=== PATIENT | female | born 1950 | race Caucasian/White ===

== ENCOUNTER → 2016-08-21 | Outpatient (CLI) | payer BC ==
--- NOTE | 2016-08-22 10:10 | WOMENS IMAGING REPORT ---
EXAM DESCRIPTION: BILAT SCREENING MAMMO W/CAD COMPLETED DATE/TIME: 08/21/2016 8:40 am REASON FOR STUDY: Z12.31 ROUTINE SCREENING MAMMO Z12.31 ENCNTR SCREEN MAMMOGRAM FOR MALIGNANT NEOPL ASM OF AMPARO COMPARISON: 08/17/2015 TECHNIQUE: Standard craniocaudal and mediolateral oblique views of each breast recorded using Botanical Tansa l acquisition. LIMITATIONS: None. FINDINGS: No masses, calcifications or architectural distortion. No areas of suspicion. Read with the assistance of CAD. .[facility] - R2 Cenova Version 1.3 .[facility] Imaging - R2 Cenova Version 1.3 .[facility] Imaging - R2 Cenova Version 2.4 .[facility] - R2 Cenova Version 2.4 .[facility] - R2 Channeler Runner Version 9.2 BREAST DENSITY: b. There are scattered areas of fibroglandular density. BIRAD: 1 NEGATIVE RECOMMENDATION: ROUTINE SCREENING COMMENT: PATIENT NOTIFIED BY LETTER. The [employer] recommends an annual screening mammogram for women aged 40 years or over. Each patient will receive a reminder prior to the anniversary date of her mammogram. The [employer] (ACR) has developed recommendations for screening MRI of the breast s in certain patient populations, to be used in conjunction with mammography. Breast MRI surveillanc e may be appropriate for women with more than 20% lifetime risk of developing breast cancer as deter mined by genetic testing, significant family history of the disease, or history of mantle radiation f or Hodgkins Disease. ACR Practice Guidelines 2008. TECHNICAL DOCUMENTATION: FINDING NUMBER: (1) ASSESSMENT: (1) JOB ID: [id number] [email or web address] All Rights Reserved
== END ==
LOC: WI 08:11
PROVIDERS: ATTEND Physician Assistant
DX: Z12.31 Encounter for screening mammogram for malignant neoplasm of breast (principal)
CPT/HCPCS: 77067; G0202

== ENCOUNTER → 2017-12-11 | Outpatient (CLI) | payer MEDICARE, BC ==
--- NOTE | 2017-12-11 16:47 | WOMENS IMAGING REPORT ---
EXAM DESCRIPTION: 3D SCREENING MAMMO BILAT COMPLETED DATE/TIME: 12/11/2017 2:43 pm REASON FOR STUDY: ROUTINE SCREENING Z12.31 Z12.31 ENCNTR SCREEN MAMMOGRAM FOR MALIGNANT NEOPLASM OF AMPARO COMPARISON: 2014, 2016 TECHNIQUE: Standard craniocaudal and mediolateral oblique views of each breast recorded using digita l acquisition and breast tomosynthesis. LIMITATIONS: None. FINDINGS: Findings present which are benign by mammographic criteria. No suspicious masses, calcifi cations or architectural distortion. Pertinent benign findings: Left breast cyst, left breast intramammary lymph nodes, bilateral benign b reast parenchymal calcifications. Read with the assistance of CAD. .[facility] - R2 Cenova Version 1.3 .[facility] Imaging - R2 Cenova Version 1.3 .[facility] Imaging - R2 Cenova Version 2.4 .[facility] [place]2 Cenova Version 2.4 .[facility] - R2 Mud Jack Operator Version 9.2 Benign mammographic findings may include one or more of the following: Smooth masses, popcorn/rim/co arse calcifications, asymmetries, post-procedure changes, and lesions with long-standing stability. IMPRESSION: BENIGN MAMMOGRAPHIC FINDINGS. BIRADS 2 BREAST DENSITY: b. There are scattered areas of fibroglandular density. BIRAD: 2 BENIGN FINDING(S) RECOMMENDATION: RECOMMENDATION: ROUTINE SCREENING Please continue yearly bilateral screening tomosynthesis in November 2018 COMMENT: The patient has been notified of the results by letter per SA requirements. Additional no tification policies are in place for contacting patient with suspicious or incomplete findings. Quality ID #[id number]: The [employer] recommends an annual screening mammogram for women aged 40 years or over. This facility utilizes a reminder system to ensure that all patients receive reminder letters, and/or direct phone calls for appointments. This includes reminders for routine scr eening mammograms, diagnostic mammograms, or other Breast Imaging Interventions when appropriate. Th is patient will be placed in the appropriate reminder system. The [employer] (ACR) has developed recommendations for screening MRI of the breast s in certain patient populations, to be used in conjunction with mammography. Breast MRI surveillanc e may be appropriate for women with more than 20% lifetime risk of developing breast cancer as deter mined by genetic testing, significant family history of the disease, or history of mantle radiation f or Hodgkins Disease. ACR Practice Guidelines 2008. DBT Technology DBT is a type of tomographic mammography. With conventional mammography, overlapping breast tissue ma y make lesions difficult to detect, even with good compression. DBT uses an x-ray tube that rotates a round the breast, taking images at different angles. These images are then combined to create thin sl ices of the breast that the radiologist can view as a 3D reconstruction. The Hologic unit can perform full-field digital mammograms (2D imaging); or DBT (3D imaging); or both, in a combination mode that quickly performs both the mammogram and the tomosynthesis scan while the breast is still compressed. PQRS 6045F: Fluoroscopic imaging is not utilized for breast tomosynthesis. TECHNICAL DOCUMENTATION: FINDING NUMBER: (1) ASSESSMENT: (1) JOB ID: [id number] [employer]- All Rights Reserved Reading location - IP/workstation name: [email or web address]
== END ==
LOC: WI 14:34
PROVIDERS: ATTEND Physician Assistant
DX: Z12.31 Encounter for screening mammogram for malignant neoplasm of breast (principal)
CPT/HCPCS: 77063; 77067

== ENCOUNTER → 2018-07-24 | Outpatient (CLI) | payer MEDICARE, BC ==
--- NOTE | 2018-07-24 11:20 | WOMENS IMAGING REPORT ---
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 LIMITATIONS: None. FINDINGS: LUMBAR SPINE: The bone mineral density (BMD) measured from L1-L4 in the AP projection correlates with a T-score of 0.3, which is normal as defined by the World Health Organization. HIP: The bone mineral density (BMD) measured in the left hip correlates with a T-score of -1.1, previously -0.6, which is osteopenia as defined by the World Health Organization. IMPRESSION: 1. LUMBAR SPINE: NORMAL. 2. HIP: OSTEOPENIA. COMMENT: The World Health Organization defines low BMD as follows: T-score: Normal: Greater than -1.0 Osteopenia: Between -1.0 and -2.5 Osteoporosis: Less than -2.5 without fractures Established osteoporosis: Less than -2.5 with fractures In general, you may wish to consider: Diagnosis Treatment Follow-up DEXA Normal BMD Prevention 2-3 years Osteopenia Prevention/Therapy 1-2 years Osteoporosis Therapy Yearly TECHNICAL DOCUMENTATION: JOB ID: [id number]- All Rights Reserved Reading location - IP/workstation name: [facility]-RR
== END ==
LOC: WI 10:23
PROVIDERS: ATTEND Physician Assistant
DX: M81.0 Age-related osteoporosis without current pathological fracture (principal)
CPT/HCPCS: 77080

== ENCOUNTER 2018-09-27 18:01 | Emergency (ER) | payer MEDICARE, BC ==
[2018-09-27] MEDS ORDERED: ONDANSETRON HCL INJ/PF 4 MG/2 ML SDV ONE (18:12)
[2018-09-27 18:33] LABS: ABSOLUTE BASOPHILS # (AUTO) 0.1 10^3/uL (0.0-0.2); ABSOLUTE EOSINOPHILS # (AUTO) 0.1 10^3/uL (0.0-0.6); ABSOLUTE LYMPHOCYTES (AUTO) 1.6 10^3/uL (0.5-4.7); ABSOLUTE MONOCYTES (AUTO) 0.4 10^3/uL (0.1-1.4); ABSOLUTE NEUT (AUTO) 3.9 10^3/uL (1.7-8.2); EOSINOPHILS % (AUTO) 2.4 % (0-6); HEMATOCRIT 41.3 % (36.0-47.0); HEMOGLOBIN 13.9 g/dL (12.0-15.5); LYMPHOCYTES % (AUTO) 26.3 % (13-45); MEAN CORPUSCULAR HEMOGLOBIN 29.8 pg (27.0-33.4); MEAN CORPUSCULAR HGB CONC 33.8 g/dL (32.0-36.0); MEAN CORPUSCULAR VOLUME 88 fl (80-97); MONOCYTES % (AUTO) 7.2 % (3-13); PLATELET COUNT 251 10^3/uL (150-450); RED BLOOD COUNT 4.67 10^6/uL (3.72-5.28); RED CELL DISTRIBUTION WIDTH 13.6 % (11.5-14.0); SEGMENTED NEUTROPHILS % (AUTO) 63.1 % (42-78); TOTAL CELLS COUNTED % (AUTO) 100 %; WHITE BLOOD COUNT 6.2 10^3/uL (4.0-10.5)
[2018-09-27 18:52] LABS: ALANINE AMINOTRANSFERASE 15 U/L (9-52); ALBUMIN 4.7 g/dL (3.5-5.0); ALKALINE PHOSPHATASE 69 U/L (38-126); ANION GAP 12 (5-19); ASPARTATE AMINO TRANSFERASE 30 U/L (14-36); BILIRUBIN,DIRECT 0.4 mg/dL (0.0-0.4); BILIRUBIN,TOTAL 0.7 mg/dL (0.2-1.3); BLOOD UREA NITROGEN 17 mg/dL (7-20); CALCIUM 9.1 mg/dL (8.4-10.2); CARBON DIOXIDE 27 mmol/L (22-30); CHLORIDE 104 mmol/L (98-107); GLUCOSE 147 mg/dL (75-110); LIPASE 122.5 U/L (23-300); POTASSIUM 4.4 mmol/L (3.6-5.0); SODIUM 142.6 mmol/L (137-145); TOTAL PROTEIN 7.8 g/dL (6.3-8.2)
--- NOTE | 2018-09-27 19:04 | RADIOLOGY REPORT (SQ) ---
EXAM DESCRIPTION: CHEST SINGLE VIEW COMPLETED DATE/TIME: 09/27/2018 6:36 pm REASON FOR STUDY: cp COMPARISON: None. EXAM PARAMETERS: NUMBER OF VIEWS: One view. TECHNIQUE: Single frontal radiographic view of the chest acquired. RADIATION DOSE: NA LIMITATIONS: None. FINDINGS: LUNGS AND PLEURA: No opacities, masses or pneumothorax. No pleural effusion. MEDIASTINUM AND HILAR STRUCTURES: No masses. Contour normal. HEART AND VASCULAR STRUCTURES: Heart normal in size. Normal vasculature. BONES: No acute findings. HARDWARE: None in the chest. OTHER: No other significant finding. IMPRESSION: NO ACUTE RADIOGRAPHIC FINDING IN THE CHEST. TECHNICAL DOCUMENTATION: JOB ID: [id number] [place]-72 2010 [email or web address]- All Rights Reserved Reading location - IP/workstation name: [email or web address]
[2018-09-27] MEDS ORDERED: RINGERS SOLUTION,LACTATED 1,000 ML IV ONE (19:08)
[2018-09-27] MEDS ORDERED: KETOROLAC TROMETHAMINE INJ/PF 30 MG/1 ML SDV IV ONE (19:08)
[2018-09-27] MEDS ORDERED: METOCLOPRAMIDE HCL INJ/PF 10 MG/2 ML SDV IV ONE (19:08)
--- NOTE | 2018-09-27 19:13 | ER Document Report ---
ED General - General Chief Complaint: Chest Pain Stated Complaint: RUQ PAIN Time Seen by Provider: 09/27/18 18:56 Primary Care Provider: ROBERTO CERNA MD [Primary Care Provider] - Follow up as needed Notes: Patient is a 68-year-old female with a past medical history of hypothyroidism who presents with right upper quadrant discomfort. Patient states that this started earlier today as a dull, aching, constant pain to the right upper quadrant and right lower rib spaces. States that it became progressively worse and eventually became quite severe. She contacted her daughter who is a linting machine operator. In route to the hospital the patient appears extremely uncomfortable so 911 was routed and the patient was ultimately brought in by EMS. The patient denies any distinct chest pain. No radiation of the pain to the back, arms or jaw. Denies any associated shortness of breath. Did have associated nausea and vomiting. No hematemesis. Has not had fever or constitutional symptoms. No history of similar symptoms in the past. She has no prior abdominal surgical history. At the time of my evaluation the patient states that her pain has almost completely resolved and is now a minor pain to her right upper quadrant location. TRAVEL OUTSIDE OF THE [place] IN LAST 30 DAYS: No - Related Data Allergies/Adverse Reactions: codeine [Codeine] Allergy (Verified 05/26/13 16:23) enoxaparin sodium [From Lovenox] Allergy (Verified 05/26/13 16:23) Penicillins Allergy (Verified 05/26/13 16:23) Sulfa (Sulfonamide Antibiotics) Allergy (Verified 05/26/13 16:23) Past Medical History - General Information source: Patient - Social History Smoking Status: Former Smoker Chew tobacco use (# tins/day): No Frequency of alcohol use: None Drug Abuse: None Lives with: Alone Family History: Reviewed & Not Pertinent Patient has suicidal ideation: No Patient has homicidal ideation: No - Past Medical History Cardiac Medical History: Reports: Hx Hypercholesterolemia Endocrine Medical History: Reports: Hx Hypothyroidism Renal/ Medical History: Denies: Hx Peritoneal Dialysis Past Surgical History: Reports: Hx Orthopedic Surgery - bilateral knees, Hx Tonsillectomy - Immunizations Hx Diphtheria, Pertussis, Tetanus Vaccination: Yes Review of Systems - Review of Systems Notes: Constitutional: Negative for fever. HENT: Negative for sore throat. Eyes: Negative for visual changes. Cardiovascular: Negative for chest pain. Respiratory: Negative for shortness of breath. Gastrointestinal: Positive for upper abdominal pain, nausea and vomiting Genitourinary: Negative for dysuria. Musculoskeletal: Negative for back pain. Skin: Negative for rash. Neurological: Negative for headaches, weakness or numbness. 10 point ROS negative except as marked above and in HPI. Physical Exam - Vital signs Vitals: Resp Pulse Ox 18 97 09/27/18 18:14 09/27/18 18:14 Interpretation: Hypertensive Notes: PHYSICAL EXAMINATION: GENERAL: Well-appearing, well-nourished and in no acute distress. HEAD: Atraumatic, normocephalic. EYES: Pupils equal round and reactive to light, extraocular movements intact, sclera anicteric, conjunctiva are normal. ENT: nares patent, oropharynx clear without exudates. Moist mucous membranes. NECK: Normal range of motion, supple without lymphadenopathy LUNGS: Breath sounds clear to auscultation bilaterally and equal. No wheezes rales or rhonchi. HEART: Regular rate and rhythm without murmurs ABDOMEN: Soft, nontender, normoactive bowel sounds. No guarding, no rebound. No masses appreciated. EXTREMITIES: Normal range of motion, no pitting or edema. No cyanosis. NEUROLOGICAL: No focal neurological deficits. Moves all extremities spontaneously and on command. PSYCH: Normal mood, normal affect. SKIN: Warm, Dry, normal turgor, no rashes or lesions noted. Course - Re-evaluation Re-evalutation: 09/27/18 19:11 Patient presents with right upper quadrant and right lower chest discomfort with associated nausea and vomiting. At the time of my assessment the patient appears much improved relative to the characterization provided by both the patient and her daughter from previous. She denies any significant ongoing tano n. Exam is completely benign without any findings. She has no focal abdominal tenderness. No neurologic deficits. No murmurs. Breath sounds clear bilaterally. Vitals show only mild hypertension, 150 systolic. Laboratories including an initial troponin are normal. EKG initially showed tachycardia which has resolved with the current heart rate of 62. Right upper quadrant ultrasound is pending. Differential diagnosis includes biliary pathology, highly unlikely to be pancreatitis given normal lipase level, less likely atypical presentation of IL. EKG without ischemic changes. Will obtain a delta troponin III hours after initial. An acute pulmonary embolus seems also highly unlikely given the absence of any shortness of breath, any pleuritic component to the pain, association of nausea and vomiting. Patient has no unilateral leg swelling, initial tachycardia did resolve after patient's pain resolved without any intervention. Do not believe CT of the chest would be appropriate at this point. 09/27/18 22:57 2 troponins have remained negative. Patient remains without any abdominal pain. No further vomiting. Has tolerated oral intake without difficulty. Right upper quadrant ultrasound without any evidence of acute cholecystitis or signs of symptomatic cholelithiasis. At this point the exact etiology of the patient's presentation is uncertain and I have reviewed the diagnostic uncertainty with the patient and her daughter at the bedside. The diagnosis of a gastritis or duodenitis is possible and I will empirically treat the patient for this presumptive diagnosis although I have again emphasized with the patient and her daughter at the bedside that this is not a definitive diagnosis. At this time will discharge with return precautions and follow-up recommendations. Verbal discharge instructions given a the bedside and opportunity for questions given. Medication warnings reviewed. Patient is in agreement with this plan and has verbalized understanding of return precautions and the need for primary care follow-up in the next 24-72 hours. - Vital Signs Vital signs: Temp Pulse Resp BP Pulse Ox 97.5 F 72 18 107/55 L 96 09/27/18 18:24 09/27/18 18:24 09/27/18 22:01 09/27/18 22:01 09/27/18 22:01 - Laboratory Result Diagrams: 09/27/18 18:07 09/27/18 18:07 Laboratory results interpreted by me: 09/27/18 18:07 Est GFR (Non-Af Amer) 57 L Glucose 147 H - Diagnostic Test Radiology reviewed: Image reviewed, Reports reviewed Radiology results interpreted by me: 09/27/18 19:13 Chest x-ray: No acute infiltrate or pneumothorax - EKG Interpretation by Me Additional EKG results interpreted by me: 09/27/18 19:13 Sinus tachycardia, rate 112. No ST elevations or depressions. QTC is 426. Discharge - Discharge Clinical Impression: Chest discomfort, Right upper quadrant abdominal pain Nausea and vomiting Qualifiers: Vomiting type: unspecified Vomiting Intractability: non-intractable Qualified Code(s): R11.2 - Nausea with vomiting, unspecified Condition: Good Disposition: HOME, SELF-CARE Additional Instructions: You were seen today for chest pain. The exact cause of your pain is unclear. However, based on your cardiac enzyme testing, chest x-ray, and EKG it does not appear that it is from an immediately life-threatening cause at this time. Your gallbladder ultrasound is also normal. All of your labs are likewise normal. Although your testing here is normal is critical that you follow-up with your primary care physician for continued evaluation of this chest pain and/or abdominal pain. Your symptoms could be related to stomach or upper intestinal irritation. Please begin taking famotidine 40 mg in the morning and 40 mg at night. Take Carafate prior to meals. Please return to emergency department immediately if you have worsening of your pain, shortness of breath, vomiting, become unable to exert yourself due to pain or difficulty breathing, you pass out, or have any pain that radiates into your arms, jaw, or back. Please also return if you have any additional symptoms that are concerning to you. As we have discussed, the most important thing is lifestyle changes. You need to avoid smoking, sodas, tea, coffee, alcohol, spicy foods, and acidic foods such as citrus fruits, tomato based products, berries, and most fruit juices. Prescriptions: Famotidine 40 mg PO BID #60 tablet Sucralfate [Carafate 1 gm Tablet] 1 gm PO ACHS #120 tablet Referrals: ROBERTO CERNA MD [Primary Care Provider] - Follow up tomorrow
--- NOTE | 2018-09-27 19:22 | RADIOLOGY REPORT (SQ) ---
EXAM DESCRIPTION: U/S ABDOMEN LIMITED W/O DOP COMPLETED DATE/TIME: 09/27/2018 7:01 pm REASON FOR STUDY: ruq pain COMPARISON: None. TECHNIQUE: Dynamic and static grayscale images acquired of the abdomen and recorded on PACS. Additio nal selected color Doppler and spectral images recorded. LIMITATIONS: None. FINDINGS: PANCREAS: No masses. Visualized pancreatic duct normal caliber. LIVER: No masses. Echotexture normal. LIVER VASCULATURE: Normal directional flow of the main portal vein and hepatic veins. GALLBLADDER: No stones. Normal wall thickness. No pericholecystic fluid. ULTRASOUND-DETECTED WHITT'S SIGN: Negative. INTRAHEPATIC DUCTS AND COMMON DUCT: CBD and intrahepatic ducts normal caliber. No filling defects. INFERIOR VENA CAVA: Normal flow. AORTA: No aneurysm identified. RIGHT KIDNEY: Normal size. Normal echogenicity. No solid or suspicious masses. No hydronephros is. No calcifications. PERITONEAL AND RIGHT PLEURAL SPACE: No ascites or effusions. OTHER: No other significant findings. IMPRESSION: NO ACUTE FINDINGS. TECHNICAL DOCUMENTATION: JOB ID: [id number] [place]-72 2010 [employer]- All Rights Reserved Reading location - IP/workstation name: [email or web address]
[2018-09-27 22:57] VITALS: BP 107/55
[2018-09-27] MEDS ORDERED: SUCRALFATE 1 GM TABLET PO ONE (22:57)
[2018-09-27] MEDS ORDERED: MAG HYDROX/AL HYDROX/SIMETH SUSP 30 ML UDCUP PO ONE (22:57)
[2018-09-27] MEDS ORDERED: METOCLOPRAMIDE HCL ORAL SOLN 10 MG/10 ML UDCUP PO ONE (22:57)
[2018-09-27] MEDS ORDERED: LIDOCAINE 2% VISCOUS SOLN 20 ML UDCUP PO ONE (22:57)
[2018-09-27] MEDS ORDERED: FAMOTIDINE 20 MG TABLET PO ONE (22:57)
--- NOTE | 2018-09-28 23:50 | EKG REPORT ---
SEVERITY:- ABNORMAL ECG - SINUS TACHYCARDIA LEFT ANTERIOR FASCICULAR BLOCK CONSIDER LEFT VENTRICULAR HYPERTROPHY : Confirmed by: Monica Birmingham 28-Sep-2018 23:50:05
== END 2018-09-27 23:17 | disposition home or self-care (01) ==
LOC: ER 18:01
DX: R07.9 Chest pain, unspecified (principal); R10.11 Right upper quadrant pain; R07.81 Pleurodynia; Z87.891 Personal history of nicotine dependence
CPT/HCPCS: 93005; 99285; 96361; 96374; 96375; 36415; 83690; 85025; 80053; 84484; 71045; 76705; 93010; A9270 ×3; J3490; J1885; J2765; J2405; J7120

== ENCOUNTER 2019-05-18 20:09 | Emergency (ER) | payer MEDICARE, BC ==
--- NOTE | 2019-05-18 21:26 | ER Document Report ---
ED Medical Screen (RME) - General Chief Complaint: Headache Stated Complaint: REPORTS HIGH BLOOD PRESSURE Time Seen by Provider: 05/18/19 21:07 Primary Care Provider: ROBERTO CERNA MD [Primary Care Provider] - Follow up as needed TRAVEL OUTSIDE OF THE [place] IN LAST 30 DAYS: No - HPI Notes: 05/18/19 21:22 Patient is a 68-year-old female with a history of hypothyroidism that presents complaining of elevated blood pressure, malaise and brief left arm pain that occurred earlier today. Patient stated that she measured her blood pressure at home with a "wrist style" blood pressure cuff. Patient states her systolic blood pressure was in the 250s. Patient denies chest pain, shortness of breath, visual changes, headache. Patient denies prior history of kidney disease. Patient states she quit "vaping" in August 2018. Patient admits to increased urinary frequency today. I have treated and performed a rapid initial assessment of this patient. [place] to the ED assessment and evaluation of the patient, analysis of the test results, and completion of medical decision making process will be conducted by additional ED providers. - Related Data Allergies/Adverse Reactions: codeine [Codeine] Allergy (Verified 05/26/13 16:23) enoxaparin sodium [From Lovenox] Allergy (Verified 05/26/13 16:23) Penicillins Allergy (Verified 05/26/13 16:23) Sulfa (Sulfonamide Antibiotics) Allergy (Verified 05/26/13 16:23) Past Medical History - Social History Chew tobacco use (# tins/day): No Frequency of alcohol use: None Drug Abuse: None - Past Medical History Cardiac Medical History: Reports: Hx Hypercholesterolemia Endocrine Medical History: Reports: Hx Hypothyroidism Renal/ Medical History: Denies: Hx Peritoneal Dialysis Past Surgical History: Reports: Hx Orthopedic Surgery - bilateral knees, Hx Tonsillectomy - Immunizations Hx Diphtheria, Pertussis, Tetanus Vaccination: Yes Physical Exam - Vital signs Vitals: Temp Pulse Resp BP Pulse Ox 97.8 F 84 18 166/90 H 93 05/18/19 20:23 05/18/19 20:23 05/18/19 20:23 05/18/19 20:23 05/18/19 20:23 - General General appearance: Appears well, Alert - Respiratory Respiratory status: No respiratory distress Breath sounds: Normal - Cardiovascular Rhythm: Regular Heart sounds: Normal auscultation - Abdominal Distension: No distension Tenderness: Nontender Course - Vital Signs Vital signs: Temp Pulse Resp BP Pulse Ox 97.8 F 84 18 166/90 H 93 05/18/19 20:23 05/18/19 20:23 05/18/19 20:23 05/18/19 20:23 05/18/19 20:23 Doctor's Discharge - Discharge Referrals: ROBERTO CERNA MD [Primary Care Provider] - Follow up as needed
--- NOTE | 2019-05-18 22:29 | RADIOLOGY REPORT (SQ) ---
EXAM DESCRIPTION: CLINICAL HISTORY: 68 years Female, high blood pressure, left arm pain COMPARISON: None. FINDINGS: Mild scoliosis. Cardiomediastinal silhouette is not enlarged. Mild elevation of the right hemidiaphragm. No acute lung or pleural abnormalities. IMPRESSION: No acute findings.
[2019-05-18 22:35] LABS: APPEARANCE,URINE SLIGHTLY-CLOUDY; BILIRUBIN,URINE NEGATIVE (NEGATIVE); COLOR,URINE YELLOW; GLUCOSE, URINE NEGATIVE (NEGATIVE); KETONES,URINE NEGATIVE (NEGATIVE); LEUKOCYTE ESTERASE,URINE TRACE (NEGATIVE); NITRITE,URINE NEGATIVE (NEGATIVE); PROTEIN,URINE NEGATIVE (NEGATIVE); URINE SPECIFIC GRAVITY 1.018; UROBILINOGEN,URINE NEGATIVE mg/dL (<2.0)
[2019-05-18 22:38] LABS: ABSOLUTE BASOPHILS # (AUTO) 0.1 10^3/uL (0.0-0.2); ABSOLUTE EOSINOPHILS # (AUTO) 0.1 10^3/uL (0.0-0.6); ABSOLUTE LYMPHOCYTES (AUTO) 1.5 10^3/uL (0.5-4.7); ABSOLUTE MONOCYTES (AUTO) 0.4 10^3/uL (0.1-1.4); ABSOLUTE NEUT (AUTO) 2.2 10^3/uL (1.7-8.2); BASOPHILS % (AUTO) 1.4 % (0-2); EOSINOPHILS % (AUTO) 3.3 % (0-6); HEMATOCRIT 43.8 % (36.0-47.0); HEMOGLOBIN 14.7 g/dL (12.0-15.5); LYMPHOCYTES % (AUTO) 35.5 % (13-45); MEAN CORPUSCULAR HEMOGLOBIN 29.5 pg (27.0-33.4); MEAN CORPUSCULAR HGB CONC 33.6 g/dL (32.0-36.0); MEAN CORPUSCULAR VOLUME 88 fl (80-97); MONOCYTES % (AUTO) 8.1 % (3-13); PLATELET COUNT 247 10^3/uL (150-450); RED BLOOD COUNT 4.99 10^6/uL (3.72-5.28); SEGMENTED NEUTROPHILS % (AUTO) 51.7 % (42-78); TOTAL CELLS COUNTED % (AUTO) 100 %; WHITE BLOOD COUNT 4.3 10^3/uL (4.0-10.5)
--- NOTE | 2019-05-18 22:44 | RADIOLOGY REPORT (SQ) ---
EXAM DESCRIPTION: CT HEAD WITHOUT IV CONTRAST COMPLETED DATE/TME: 05/18/2019 21:18 CLINICAL HISTORY: 68 years, Female, high blood pressure, malaise, left upper arm pain COMPARISON: None. TECHNIQUE: 183 Images stored on PACS. All CT scanners at this facility use dose modulation, iterative reconstruction, and/or weight based dosing when appropriate to reduce radiation dose to as low as reasonably achievable (ALARA). [facility]: Dose Right [facility]: CareDose [facility]: Dose Right [facility]: Teradose 4D [facility]: Smart Technologies LIMITATIONS: None. FINDINGS: The globes are intact. The paranasal sinuses and mastoid air cells are unremarkable. No displaced or depressed skull fracture. No intra or extra-axial hemorrhage. CT is limited for evaluation of acute infarct. No CT evidence for large or territorial acute infarct. No mass. No midline shift IMPRESSION: No acute intracranial abnormality TECHNICAL DOCUMENTATION: Quality ID # [id number]: Final reports with documentation of one or more dose reduction techniques (e.g., Automated exposure control, adjustment of the mA and/or kV according to patient size, use of iterative reconstruction technique) copyright 2011 [employer]- All Rights Reserved
[2019-05-18 22:49] LABS: INTERNATIONAL RATION (INR) 0.92; PROTHROMBIN TIME 12.3 SEC (11.4-15.4)
[2019-05-18 22:50] LABS: PARTIAL THROMBOPLASTIN TIME 30.6 SEC (23.5-35.8)
[2019-05-18 22:56] LABS: ALBUMIN 4.9 g/dL (3.5-5.0); ALKALINE PHOSPHATASE 80 U/L (38-126); ANION GAP 10 (5-19); ASPARTATE AMINO TRANSFERASE 29 U/L (14-36); BILIRUBIN,DIRECT 0.1 mg/dL (0.0-0.4); BILIRUBIN,TOTAL 0.6 mg/dL (0.2-1.3); BLOOD UREA NITROGEN 17 mg/dL (7-20); CALCIUM 9.9 mg/dL (8.4-10.2); CARBON DIOXIDE 26 mmol/L (22-30); CHLORIDE 104 mmol/L (98-107); GLUCOSE 105 mg/dL (75-110); POTASSIUM 4.2 mmol/L (3.6-5.0); TOTAL PROTEIN 8.1 g/dL (6.3-8.2)
--- NOTE | 2019-05-18 23:59 | ER Document Report ---
ED Headache - General Chief Complaint: Headache Stated Complaint: REPORTS HIGH BLOOD PRESSURE Time Seen by Provider: 05/18/19 23:59 Primary Care Provider: ROBERTO CERNA MD [Primary Care Provider] - Follow up as needed TRAVEL OUTSIDE OF THE [place] IN LAST 30 DAYS: No - Related Data Allergies/Adverse Reactions: codeine [Codeine] Allergy (Verified 05/26/13 16:23) enoxaparin sodium [From Lovenox] Allergy (Verified 05/26/13 16:23) Penicillins Allergy (Verified 05/26/13 16:23) Sulfa (Sulfonamide Antibiotics) Allergy (Verified 05/26/13 16:23) Past Medical History - Social History Smoking Status: Former Smoker Chew tobacco use (# tins/day): No Frequency of alcohol use: None Drug Abuse: None Family History: Reviewed & Not Pertinent Patient has suicidal ideation: No Patient has homicidal ideation: No - Past Medical History Cardiac Medical History: Reports: Hx Hypercholesterolemia Endocrine Medical History: Reports: Hx Hypothyroidism Renal/ Medical History: Denies: Hx Peritoneal Dialysis Past Surgical History: Reports: Hx Orthopedic Surgery - bilateral knees, Hx Tonsillectomy - Immunizations Hx Diphtheria, Pertussis, Tetanus Vaccination: Yes Physical Exam - Vital signs Vitals: Temp Pulse Resp BP Pulse Ox 97.8 F 84 18 166/90 H 93 05/18/19 20:23 05/18/19 20:23 05/18/19 20:23 05/18/19 20:23 05/18/19 20:23 Course - Vital Signs Vital signs: Temp Pulse Resp BP Pulse Ox 97.8 F 84 18 166/90 H 93 05/18/19 20:23 05/18/19 20:23 05/18/19 20:23 05/18/19 20:23 05/18/19 20:23 - Laboratory Result Diagrams: 05/18/19 22:19 05/18/19 22:19 Laboratory results interpreted by me: 05/18/19 05/18/19 22:19 22:19 Est GFR (MDRD) Non-Af 56 L Urine Blood MODERATE H Ur Leukocyte Esterase TRACE H Discharge - Discharge Referrals: ROBERTO CERNA MD [Primary Care Provider] - Follow up as needed
[2019-05-19 00:25] VITALS: BP 145/78
--- NOTE | 2019-05-19 00:26 | EKG REPORT ---
SEVERITY:- ABNORMAL ECG - SINUS RHYTHM LEFT AXIS DEVIATION PROBABLE LEFT VENTRICULAR HYPERTROPHY : Confirmed by: Sofie King MD 19-May-2019 00:25:51
--- NOTE | 2019-05-19 00:35 | ER Document Report ---
ED Blood Pressure Problem - General Chief Complaint: Headache Stated Complaint: REPORTS HIGH BLOOD PRESSURE Time Seen by Provider: 05/18/19 23:59 Primary Care Provider: ROBERTO CERNA MD [COMMUNITY BASED STAFF] - Follow up as needed Notes: RME NOTE: Patient is a 68-year-old female with a history of hypothyroidism that presents complaining of elevated blood pressure, malaise and brief left arm pain that occurred earlier today. Patient stated that she measured her blood pressure at home with a "wrist style" blood pressure cuff. Patient states her systolic blood pressure was in the 250s. Patient denies chest pain, shortness of breath, visual changes, headache. Patient denies prior history of kidney disease. Patient states she quit "vaping" in August 2018. Patient admits to increased urinary frequency today. My HPI: Patient does admit to working out in the yard with her daughter within the last week. Patient's daughter states she did remove to ticks from her close. Patient voices she did not see any tics. Patient's denying fevers, rash, dysuria, abdominal pain, chest pain or pressure, shortness of breath. When I asked the patient about the left arm pain that she had. Patient voices she thinks it was more in her left elbow and she feels as though she hyperextended her left arm while picking something up. Patient's denying any jaw pain left shoulder or arm pain. Patient voices at this point time she feels "tired." Patient also voices that it is midnight and states "I am typically asleep at this time." Patient denies a history of high blood pressure. States the reason she took her blood pressure was because she felt a general malaise. Patient states she takes vitamin D, daily aspirin, levothyroxine. TRAVEL OUTSIDE OF THE [place] IN LAST 30 DAYS: No - Related Data Allergies/Adverse Reactions: codeine [Codeine] Allergy (Verified 05/26/13 16:23) enoxaparin sodium [From Lovenox] Allergy (Verified 05/26/13 16:23) Penicillins Allergy (Verified 05/26/13 16:23) Sulfa (Sulfonamide Antibiotics) Allergy (Verified 05/26/13 16:23) Past Medical History - General Information source: Patient - Social History Smoking Status: Former Smoker Chew tobacco use (# tins/day): No Frequency of alcohol use: None Drug Abuse: None Family History: Reviewed & Not Pertinent Patient has suicidal ideation: No Patient has homicidal ideation: No - Past Medical History Cardiac Medical History: Reports: Hx Hypercholesterolemia Endocrine Medical History: Reports: Hx Hypothyroidism Renal/ Medical History: Denies: Hx Peritoneal Dialysis Past Surgical History: Reports: Hx Orthopedic Surgery - bilateral knees, Hx Tonsillectomy - Immunizations Hx Diphtheria, Pertussis, Tetanus Vaccination: Yes Review of Systems - Review of Systems Constitutional: denies: Fever EENT: No symptoms reported Cardiovascular: No symptoms reported Respiratory: No symptoms reported Gastrointestinal: No symptoms reported Genitourinary: No symptoms reported Female Genitourinary: No symptoms reported Musculoskeletal: See HPI Skin: No symptoms reported Hematologic/Lymphatic: No symptoms reported Neurological/Psychological: See HPI Physical Exam - Vital signs Vitals: Temp Pulse Resp BP Pulse Ox 97.8 F 84 18 166/90 H 93 05/18/19 20:23 05/18/19 20:23 05/18/19 20:23 05/18/19 20:23 05/18/19 20:23 - Notes Notes: GENERAL: Alert, interacts well. No acute distress. HEAD: Normocephalic, atraumatic. EYES: Pupils equal, round, and reactive to light. Extraocular movements intact. ENT: Oral mucosa moist, tongue midline. NECK: Full range of motion. Supple. Trachea midline. LUNGS: Clear to auscultation bilaterally, no wheezes, rales, or rhonchi. No respiratory distress. HEART: Regular rate and rhythm. No murmur ABDOMEN: Soft, non-tender. Non-distended. Bowel sounds present in all 4 quadrants. EXTREMITIES: Moves all 4 extremities spontaneously. No edema, normal radial and dorsalis pedis pulses bilaterally. No cyanosis. 5 out of 5 strength noted all 4 extremities. BACK: no cervical, thoracic, lumbar midline tenderness. No saddle anesthesia, normal distal neurovascular exam. NEUROLOGICAL: Alert and oriented x3. Normal speech. cranial nerves II through XII grossly intact PSYCH: Normal affect, normal mood. SKIN: Warm, dry, normal turgor. No rashes or lesions noted. [place] CVA scale 0 Course - Re-evaluation Re-evalutation: Laboratory 05/18/19 05/18/19 05/18/19 22:19 22:19 22:19 WBC 4.3 RBC 4.99 Hgb 14.7 Hct 43.8 MCV 88 MCH 29.5 MCHC 33.6 RDW 14.0 Plt Count 247 Lymph % (Auto) 35.5 [place] % (Auto) 8.1 Eos % (Auto) 3.3 Baso % (Auto) 1.4 Absolute Neuts (auto) 2.2 Absolute Lymphs (auto) 1.5 Absolute Monos (auto) 0.4 Absolute Eos (auto) 0.1 Absolute Basos (auto) 0.1 Seg Neutrophils % 51.7 PT INR APTT Sodium 140.1 Potassium 4.2 Chloride 104 Carbon Dioxide 26 Anion Gap 10 BUN 17 Creatinine 0.99 Est GFR ( Amer) > 60 Est GFR (MDRD) Non-Af 56 L Glucose 105 Calcium 9.9 Total Bilirubin 0.6 Direct Bilirubin 0.1 Neonat Total Bilirubin Not Reportable Neonat Direct Bilirubin Not Reportable Neonat Indirect Bili Not Reportable AST 29 ALT 19 Alkaline Phosphatase 80 Troponin I < 0.012 Total Protein 8.1 Albumin 4.9 Urine Color Urine Appearance Urine pH Ur Specific [place] Urine Protein Urine Glucose (UA) Urine Ketones Urine Blood Urine Nitrite Urine Bilirubin Urine Urobilinogen Ur Leukocyte Esterase Urine WBC (Auto) Urine RBC (Auto) U Hyaline Cast (Auto) Squamous Epi Cells Auto Urine Mucus (Auto) Urine Ascorbic Acid 05/18/19 05/18/19 22:19 22:19 WBC RBC Hgb Hct MCV MCH MCHC RDW Plt Count Lymph % (Auto) [place] % (Auto) Eos % (Auto) Baso % (Auto) Absolute Neuts (auto) Absolute Lymphs (auto) Absolute Monos (auto) Absolute Eos (auto) Absolute Basos (auto) Seg Neutrophils % PT 12.3 INR 0.92 APTT 30.6 Sodium Potassium Chloride Carbon Dioxide Anion Gap BUN Creatinine Est GFR ( Amer) Est GFR (MDRD) Non-Af Glucose Calcium Total Bilirubin Direct Bilirubin Neonat Total Bilirubin Neonat Direct Bilirubin Neonat Indirect Bili AST ALT Alkaline Phosphatase Troponin I Total Protein Albumin Urine Color YELLOW Urine Appearance SLIGHTLY-CLOUDY Urine pH 5.0 Ur Specific [place] 1.018 Urine Protein NEGATIVE Urine Glucose (UA) NEGATIVE Urine Ketones NEGATIVE Urine Blood MODERATE H Urine Nitrite NEGATIVE Urine Bilirubin NEGATIVE Urine Urobilinogen NEGATIVE Ur Leukocyte Esterase TRACE H Urine WBC (Auto) 1 Urine RBC (Auto) 1 U Hyaline Cast (Auto) 1 Squamous Epi Cells Auto 4 Urine Mucus (Auto) RARE Urine Ascorbic Acid NEGATIVE Head CT 05/18/19 21:18 IMPRESSION: No acute intracranial abnormality TECHNICAL DOCUMENTATION: Quality ID # [id number]: Final reports with documentation of one or more dose reduction techniques (e.g., Automated exposure control, adjustment of the mA and/or kV according to patient size, use of iterative reconstruction technique) copyright 2011 [employer]- All Rights Reserved Chest X-Ray 05/18/19 21:21 IMPRESSION: No acute findings. Patient's labs are essentially unremarkable. I discussed with her doing [place] spotted fever testing for her only complaint of generalized malaise. Patient continues to deny any fevers, headache, seeing a tick or picking a tick off of herself. Patient's initial troponin was negative. I discussed with patient and her daughter at length doing a repeat troponin for again patient's complaint of generalized malaise. Patient is declining at this time. Patient voices she feels "fine". Now that she knows that her blood pressure is not elevated she would like to be discharged and follow-up with her primary care provider in the morning. NIH scale 0. I had extensive conversation with patient and his daughter at bedside about the importance of following up with primary care provider. I also discussed close return precautions. Patient is hemodynamically stable, states she feels "better." And would like to be discharged. - Vital Signs Vital signs: Temp Pulse Resp BP Pulse Ox 97.8 F 66 18 145/78 H 96 05/18/19 20:23 05/19/19 00:20 05/19/19 00:20 05/19/19 00:20 05/19/19 00:20 - Laboratory Result Diagrams: 05/18/19 22:19 05/18/19 22:19 Laboratory results interpreted by me: 05/18/19 05/18/19 22:19 22:19 Est GFR (MDRD) Non-Af 56 L Urine Blood MODERATE H Ur Leukocyte Esterase TRACE H Discharge - Discharge Clinical Impression: Feared condition not demonstrated, Malaise and fatigue Condition: Stable Disposition: HOME, SELF-CARE Additional Instructions: As we discussed you have been seen and treated in the emergency department for your suspected elevated blood pressure. Please make sure you follow-up with your primary care provider in the morning. Please make sure you return to the emergency department should he have any concerns. Referrals: ROBERTO CERNA MD [COMMUNITY BASED STAFF] - Follow up as needed
--- NOTE | 2019-05-20 19:52 | EKG REPORT ---
SEVERITY:- ABNORMAL ECG - SINUS TACHYCARDIA PROBABLE LEFT ATRIAL ABNORMALITY NONSPECIFIC T ABNORMALITIES, LATERAL LEADS : Confirmed by: Sofie King MD 20-May-2019 19:51:42
== END 2019-05-19 00:59 | disposition home or self-care (01) ==
LOC: ER 20:09
DX: R53.81 Other malaise (principal); Z71.1 Person with feared health complaint in whom no diagnosis is made; R51 Headache; M79.602 Pain in left arm; E03.9 Hypothyroidism, unspecified; E78.00 Pure hypercholesterolemia, unspecified; Z88.0 Allergy status to penicillin; Z88.2 Allergy status to sulfonamides; Z88.6 Allergy status to analgesic agent
CPT/HCPCS: 36415; 70450; 71046; 80053; 81001; 84484; 85025; 85610; 85730; 86757; 93005; 93010